=== PATIENT | female | born 1965 | race Caucasian/White ===

== ENCOUNTER → 2023-01-25 | Outpatient (CLI) | payer OTHER, SELFPAY ==
[2023-02-01 13:08] LABS: HPV APTIMA, High Risk Negative (Negative)
== END | disposition home or self-care (01) ==
PROVIDERS: Visit Provider Obstetrics & Gynecology
DX: Z12.4 Encounter for screening for malignant neoplasm of cervix (principal)
CPT/HCPCS: 87624; 88175; G0145

== ENCOUNTER → 2023-02-08 | Outpatient (CLI) | payer OTHER, SELFPAY ==
--- NOTE | 2023-02-08 16:05 | US_ITS ---
EXAM: US PELVIS TRANSABDOMINAL AND TRANSVAGINAL, COMPLETE CLINICAL INDICATION: discomfort TECHNIQUE: Transabdominal and transvaginal pelvic ultrasound was performed with grayscale and color Doppler imaging. Transvaginal imaging was used for better evaluation of the endometrium and adnexa. COMPARISON: No relevant prior studies available. FINDINGS: LIMITATIONS: Large amount of bowel visualized overlying the examination limiting its assessment. UTERUS/CERVIX: Multiple small calcifications in the uterus. Uterus measures 8.4 x 2 4.2 x 3.8 cm with endometrial thickness measuring 4.6 mm. No fibroids. Cervix is closed. Anteverted. RIGHT OVARY: Ovaries are not visualized. This could be due to overlying bowel gas and/or location of the ovaries. Coarse focal calcification with shadowing in the right adnexa measuring 0.6 cm; this may be located within bowel or within distended fallopian tube. LEFT OVARY: See above. FREE FLUID: None. BLADDER: Bladder is unremarkable. US/Transvaginal Non- IMPRESSION: 1. Coarse focal calcification with shadowing in the right adnexa measuring 0.6 cm; this may be located within bowel or within distended fallopian tube. 2. Ovaries are not visualized. 3. No concerning uterine masses. Endometrial complex is unremarkable. Electronically Signed: Jax Walker MD at 4:27 EDT ,
--- NOTE | 2023-02-08 16:05 | US_ITS ---
EXAM: US PELVIS TRANSABDOMINAL AND TRANSVAGINAL, COMPLETE CLINICAL INDICATION: discomfort TECHNIQUE: Transabdominal and transvaginal pelvic ultrasound was performed with grayscale and color Doppler imaging. Transvaginal imaging was used for better evaluation of the endometrium and adnexa. COMPARISON: No relevant prior studies available. FINDINGS: LIMITATIONS: Large amount of bowel visualized overlying the examination limiting its assessment. UTERUS/CERVIX: Multiple small calcifications in the uterus. Uterus measures 8.4 x 2 4.2 x 3.8 cm with endometrial thickness measuring 4.6 mm. No fibroids. Cervix is closed. Anteverted. RIGHT OVARY: Ovaries are not visualized. This could be due to overlying bowel gas and/or location of the ovaries. Coarse focal calcification with shadowing in the right adnexa measuring 0.6 cm; this may be located within bowel or within distended fallopian tube. LEFT OVARY: See above. FREE FLUID: None. BLADDER: Bladder is unremarkable. US/Pelvic (Non ) IMPRESSION: 1. Coarse focal calcification with shadowing in the right adnexa measuring 0.6 cm; this may be located within bowel or within distended fallopian tube. 2. Ovaries are not visualized. 3. No concerning uterine masses. Endometrial complex is unremarkable. Electronically Signed: Jax Walker MD at 4:27 EDT ,
== END | disposition home or self-care (01) ==
LOC: US 16:02
PROVIDERS: PCP Family Medicine; Referring Provider Obstetrics & Gynecology; Visit Provider Obstetrics & Gynecology
DX: N81.3 Complete uterovaginal prolapse (principal)
CPT/HCPCS: 76830; 76856

== ENCOUNTER 2023-03-16 09:50 | Observation (INO) | payer OTHER, SELFPAY ==
--- NOTE | 2023-03-08 12:26 | EKG12_ITS ---
Test Reason : PRE OP Blood Pressure : / mmHG Vent. Rate : 068 BPM Atrial Rate : 068 BPM P-R Int : 154 ms QRS Dur : 076 ms QT Int : 398 ms P-R-T Axes : 053 043 057 degrees QTc Int : 423 ms Normal sinus rhythm Normal ECG Confirmed by TYLER BLANCO, KURT ([id number]), newspaper editor managing SUNG GOODSON ([id number]) on 03/10/2023 9:52:45 AM Referred By: Gita Schuler Confirmed By:ZITA SCOTT MD
[2023-03-08 18:19] LABS: Hematocrit 36.7 % (37-47); Hemoglobin 12.3 g/dL (12.0-15.0); Mean Corp Hgb Conc 33.5 g/dL (32-36); Mean Corpuscular Hgb 32.2 pg (27.0-32.0); Mean Corpuscular Volume 96.1 fL (81-99); Platelet Count 382 K/mm3 (150-450); RBC Distribution Width CV 14.5 % (11.6-14.6); RBC Distribution Width SD 50.5 fl (35.1-43.9); Red Blood Count 3.82 M/mm3 (4.2-5.4); White Blood Count 7.7 K/mm3 (4.4-11.0)
[2023-03-08 18:54] LABS: Anion Gap 3 (5-15); BUN 13 mg/dL (7-18); BUN/Creat Ratio 28.4 RATIO (10-20); Calcium,Total 8.3 mg/dL (8.5-10.1); Chloride 111 mmol/L (98-107); Creatinine, Serum 0.46 mg/dL (0.55-1.02); EST Glomerular Filtration Rate 151 mL/min (>60); Est Glom Filt Rate - Afr Amer 182 mL/min (>60); Glucose 94 mg/dL (74-106); Magnesium 2.4 mg/dL (1.6-2.6); Potassium 4.3 mmol/L (3.5-5.1); Sodium Level 138 mmol/L (136-145)
--- NOTE | 2023-03-15 16:58 | HP.PCM_ITS ---
History and Physical Date of Admission: 03/15/23 Intake Vital Signs ? 03/08/2313:52 03/08/2313:53 Height 5 ft 3 in 5 ft 3 in Weight: 102 lb 6 oz ? BMI 18.1 ? BP 99/59 L ? Intake Visit Reasons:?TVHBS cysto Manager Of Compliance Required: No Is patient in pain?: No Allergies No Known Allergies Allergy (Verified 03/08/23 13:53) Medications red yeast rice 600 mg capsule 600 mg PO DAILY 01/25/23 [History Confirmed 03/08/23] estradiol 0.01% (0.1 mg/gram) vaginal cream 1 appful vaginal MOWEFR PRE-OP 03/03/23 [History Confirmed 03/08/23] PFSH Medical History? Dietary restriction History of IBS Non-smoker Post-menopausal Restless legs Wears glasses Surgical History? Hx of colonoscopy Hx of dilation and curettage Hx of wisdom tooth extraction Family History? Father Cancer of kidney Diabetes Heart disease Social History? Smoking Status:? Never smoker alcohol intake:? never substance use type:? does not use additional social history:? - Luis HPI TVHBS cysto Details: JASMIN SILVA is a 57 year old (vaginal deliveries) who presents for discussion about surgery to remove uterus and pelvic repair. She has seen Dr. Adair already and the plan is for at least a cystocele repair. She states that her uterus is completely prolapsed and she has to push it back up inside for relief. History ? ? ? 7 ? Elective abortions ? Hx Para ? ? ? 5 ? Spontaneous abortions ? ? ? 2 Hx # Term Pregnancies ? Ectopic pregnancies ? Hx # Pregnancies ? Multiple births ? # of living children ? Past Pregnancies Del. Date Name GA/Weeks Outcome Route Bth Weight Gen Labor Lgth Anesthesia Del Locatn Provider FOB Unknown Freddy ? Unknown Merl ? Unknown Dipika ? Unknown Melissa ? Unknown Navi ? ROS Const ROS Unobtainable: All systems reviewed & are unremarkable except as noted in H Resp Resp: Reports system reviewed and no additional complaints, except as documented; Denies cough GI GI: Reports as per HPI Psych Psych: Reports system reviewed and no additional complaints, except as documented Exam Const General: cooperative, healthy appearing, comfortable and no acute distress Resp Effort & Inspection: normal respiratory effort Skin General: no rashes or lesions noted Psych Appearance: grossly normal Speech and Movement: speech and movement normal Coding Level of Care Code Off vis,est,level 4 Diagnoses Complete uterine prolapse? N81.3 Assessment and Plan Assessment and Plan (1) Complete uterine prolapse: ?Status:?Acute ?Plan: After discussing the patient's diagnosis and treatment plan options, patient wishes to proceed with surgical management.? I have discussed with the patient the risks, benefits, and alternatives of the procedure which include but are not limited to risks of anesthesia, bleeding, infection, possible damage to bowel, bladder, or surrounding vasculature which could lead to additional surgery to evaluate any complications.? Patient agrees to procedure and wishes to proceed.? ACOG/uptodate references given for additional information regarding procedure.? pt does not want ovaries removed. plan for total vaginal hyst with and a& P repair with dr. adair
[2023-03-16] VITALS (13 sets, daily range): BP systolic 83–103; BP diastolic 57–68; PULSE 60–77; RESP 15–18; TEMP 36.1–37.1; O2SAT 95–100; BMI 18.4
--- NOTE | 2023-03-16 | HYST_PTH ---
PATIENT: JASMIN SILVA LOC: MS3 U#:[id number] AGE/SX: 57/F ROOM: [facility] RE03/16/[address]: Dr. Gita Schuler MD : [id number] BED: 1 DIS: 03/17/2023 SPEC #: [id number] RECD: 03/16/23 12:17 STATUS: CHRISTINA REYue #: [id number] BLANCA: 03/16/23 00:[address]: Gita Schuler DEPT: SURGICAL PATHOLOGY RECD BY: Lyle Vincent ENTERED: 03/16/23 12:17 SP TYPE: HYSTERECT OTHR DR: DO Dr. Julio Cordero MD Tissues: Uterus, NOS Procedures: Surgery Specimen Level V HEADER OPERATION: ERAS, total vaginal hysterectomy, bilateral salpingectomy PRE-OP DIAGNOSIS: Complete uterine prolapse TISSUE SUBMITTED: Uterus, cervix, bilateral fallopian tubes MICROSCOPIC DIAGNOSIS Uterus, hysterectomy: Cervix ? hyperkeratosis and mucosal denudation with associated granulation. Endometrium ? focal simple cystic hyperplasia without atypia. Myometrium ? focal superficial adenomyosis. Right and left fallopian tube ? benign paratubal cysts. AM:juve 03/17/2023 MICROSCOPIC DESCRIPTION Slides are reviewed. GROSS DESCRIPTION Received in fixative is one container labeled with the patient's name and designated uterus. The specimen consists of a uterus with attached cervix and two detached fallopian tubes. The uterus with cervix measures 11.0 x 6.0 x 5.0 cm and weighs 137.9 gm. The ectocervix is has an irregular cervical os, but no distinct mass lesions are identified. The paracervical tissue is inked. The endocervical canal measures 3.2 cm in length and is grossly unremarkable. The triangular endometrial cavity measures 3.5?x 2.2 cm. The velvety, light kumar endometrium measures up to 0.2 cm in greatest thickness. The myometrium measures 2.2 cm in average thickness and is free of mass lesions. The two fallopian tubes?are similar in appearance with average lengths of 5.0 cm and average diameters of 0.7 cm. Retail Clerk sections are submitted as follows: 1 - anterior cervix, 2 - posterior cervix, 3 & 4 - anterior uterine wall, 5 & 6 - posterior myometrial wall, 7 - one fallopian tube, 8 - the other fallopian tube. / AM:juve 03/16/2023 TC:5 CPT: 91714
[2023-03-16] MEDS: Lactated Ringers 1,000 ML 40 ML IV (06:11)
[2023-03-16] MEDS: Magnesium 1 GM over 15 mins IV (06:11)
[2023-03-16] MEDS: Acetaminophen 500 MG Tablet 1000 MG PO ×3 (06:12→18:19)
[2023-03-16] MEDS: Gabapentin 600 MG Tablet PO (06:13)
[2023-03-16] MEDS: Celecoxib 200 MG Capsule 400 MG PO (06:13)
[2023-03-16] MEDS: dexAMETHasone 4 MG/ML Vial 8 MG IV (06:14)
[2023-03-16 06:46] LABS: Bedside Glucose 98 mg/dL (74-106)
--- NOTE | 2023-03-16 07:30 | PCM.DC ---
Discharge Instructions Diet Discharge Diet: No restrictions Activity Discharge Activity: Return to Normal Activity, May Not Drive (while taking narcotic pain medications.) and May Shower May resume sexual activity in: 6-8 weeks Dressing / Incision Call your doctor if your incision/area has: Continuous Slow Oozing, Sudden Increased Bleeding, Increased Pain/ Swelling, Increased Redness and Foul Smelling Discharge Call your doctor if you observe: Fever of 101 or Higher, Inability to urinate, Inability to have a bowel movement and Using more than 1 pad per hour Follow Up Care Please Follow Up With: Michelle Abdul DO Test Results: Test results from this visit will be discussed in further detail at your follow-up appointment, if applicable. Discharge Plan Admission Primary Reason for Your Visit: vaginal hysterectomy, vaginal repair Attending Provider: Gita Schuler Primary Care Provider: Julio King Consulting Providers: Michelle Abdul Discharge Orders/Prescriptions Prescriptions: New ibuprofen 800 mg tablet 800 mg PO Q8H PRN (Reason: pain) Qty: 30 0RF hydrocodone-acetaminophen 5-325 mg tablet 1 tab PO Q4H PRN (Reason: pain) 7 Days Qty: 20 0RF Continued red yeast rice 600 mg capsule 600 mg PO DAILY Rx Instructions: give with meal/snack estradiol 0.01 % (0.1 mg/gram) cream 1 appful VAGINAL MOWEFR Label Comments: INSERT ONE GRAM VAGINALLY THREE TIMES PER WEEK BEFORE BED Other Ambulatory Orders: ,Urine (Routine) Timeframe: [id number] Facility: [facility] - Location: Laboratory Ordered By: Dr. Michelle Abdul 12 Lead EKG (Routine) Timeframe: [id number] Location: None Selected Ordered By: Dr. Smith Bryant Referrals / Follow Up: Julio King MD [Primary Care Provider] - Disposition Disposition (needs filled in before D/C Order can be placed): Home, Self Care
[2023-03-16] MEDS: Lactated Ringers @ 70 MLS/HR 70 ML IV ×2 (07:42→16:25)
[2023-03-16] MEDS: Cefotetan 2 GM in 0.9% NS 100 ML IV (07:42)
--- NOTE | 2023-03-16 09:27 | OP.PCM_ITS ---
Problems Associated Problem List Diagnoses (1) Atrophy of vagina: (2) Complete uterine prolapse: (3) Urge incontinence: (4) Nocturia: Report of Operation Date of Procedure: 03/16/23 Pre-Operative Diagnosis: complete pelvic organ prolapse Post-Operative Diagnosis: complete pelvic organ prolapse Surgery/Procedure Performed:: total vaginal hysterectomy, bilateral salpingectomy Description of Surgical Findings:: completely prolapsed cervix and uterus, atrophic and somewhat stretched and denuded peritoneal tissue Surgeon: Michelle Abdul distribution operations supervisor: Mana Alcazar Type of Anesthesia: General Specimen's removed: uterus, cervix, bilateral fallopian tubes Estimated Blood Loss (mL): 200cc Description of Procedure: Patient was taken to the operating room and was placed under general anesthesia was prepped and draped in normal sterile fashion in the dorsal lithotomy position.? Preoperative antibiotics and SCDs and Zheng catheter was placed inside the bladder.? Weighted speculum was placed in the vagina and the anterior and posterior lip of the cervix was grasped with 2 Carissa clamps The posterior cul-de-sac was entered sharply to start the procedure. The perintoneum and posterior vaginal mucosa were tagged with 1-0 vicryl suture. Next, the uterosacral ligaments were clamped and suture ligated. The anterior cul-de-sac was also dissected down and entered into sharply and the cardinal ligaments were clamped cut and suture ligated bilaterally with # 0 vicryl.? The uterus serially descended and progressive bites were taken bilaterally up to the level of the utero-ovarian ligament bilaterally which was clamped transected and double ligated with 0 vicryl suture and 0 Vicryl free tie.? Bilateral fallopian tubes and ovaries were well visualized and noted be within normal limits and the bilateral fallopian tubes were transected across the base with a Cary clamp and removed and sutured with 0 Vicryl suture.? Excellent hemostasis was noted.? The bilateral uterosacral ligaments were incorporated into the anterior peritoneum to provide apical support to the vagina.? The vagina was closed with [id number] 0 Vicryl pop offs including the posterior and anterior peritoneum in the reapproximation.? Excellent hemostasis was noted.? The vaginal length however was noted to be 4 cm in length. All instruments removed from the vagina clear urine was noted at the end of the procedure and patient was awoken and taken recovery in stable condition. Dr Schuler was called in to complete her portion of the procedure. Grafts/Implants Used: none Complications none Admit VTE Documentation VTE Present on Admission: No VTE Mechan Device Prophylaxis: SCD's VTE Pharm Prophylaxis ordered?: Yes Multi Select Codes Urinary/Genital Urinary/Genital CPT Codes: 08825 TVH+BS/O <250gr uterus
[2023-03-16] MEDS: Bupivacaine 0.25% 30 ML Vial (09:30)
[2023-03-16] MEDS: Estrogens,Conj. 1 Tube 1 DOSE (09:40)
[2023-03-16] MEDS: Ondansetron 4 MG/2 ML Vial IV (09:48)
--- NOTE | 2023-03-16 09:57 | PCM.OPRPT ---
Report of Operation Date of Procedure: 03/16/23 Pre-Operative Diagnosis: Complete uterine prolapse, cystocele, rectocele Post-Operative Diagnosis: Same Surgery/Procedure Performed:: Right sacrospinous ligament fixation posterior repair, cystoscopy with bilateral ureteral catheterization Surgeon: Gita Schuler Type of Anesthesia: General Description of Procedure: The patient is a 57-year-old female with complete uterine prolapse, who underwent testing preoperatively and now presents for surgical intervention. Informed consent was obtained. The patient was taken to the operating room and placed on the operating room table. Anesthesia monitored the head, neck, airway, IV access and vital signs throughout the case. Once anesthesia was administered, the patient was placed into exaggerated dorsolithotomy and Trendelenburg position and was prepped and draped in usual sterile fashion. Dr. Copeland performed her portion of the procedure and close the vaginal cuff. The case was then turned over to me. She had an indwelling Zheng catheter draining clear yellow urine. The vault length was very short, and on further assessment her pelvic width was very short as well. I was able to palpate the right sacrospinous ligament and bring the apex of the vagina to the ligament without too much tension. The decision was made to proceed with apical support and the anterior repair was aborted as the prolapse was reduced with the addition of apical support. The posterior submucosa was injected with Marcaine for hydrostatic dissection. A midline incision was made in full-thickness fashion through the vaginal mucosa. The mucosa was very thin for her age. Dissection was done on the right side all the way until the ischial spine was palpable and the sacrospinous ligament was identified and freed from surrounding tissues. The Capio device was then used to pass a 2-0 Ethibond suture through the ligament and this was brought out in full-thickness fashion through the apex. The suture was tied into position. The patient was taken out of Trendelenburg, the Zheng catheter was removed and a cystoscopy was performed through the urethra under direct visualization. There was no evidence of injury to the urinary bladder. Bilateral ureteral orifices were identified in the area of the trigone. Each ureteral orifice was cannulated 1 at a time with a 5 Pashto whistle-tip catheter which easily advanced all the way to 20 cm without evidence of injury or obstruction. There was no hemorrhage from either orifice or noted on the whistle-tip catheter when removed. At this time the cystoscope was removed and the Zheng catheter was reinserted and the balloon was inflated. The rectovaginal fascia was brought together in a 2 layer closure with 2-0 Vicryl in interrupted fashion. Once this repair was done all the way through the perineal body, the prolapse was completely reduced with no evidence or ability for further repair. The decision was made to abort the mid urethral sling as the patient has no stress incontinence and her length of the urethra was also very short. At this time the vagina was filled with estrogen cream and packing. She was awakened and taken to the recovery room in good condition. There were no complications during this procedure. Grafts/Implants Used: None Complications None Admit VTE Documentation VTE Present on Admission: Yes VTE Mechan Device Prophylaxis: SCD's VTE Pharm Prophylaxis ordered?: No
[2023-03-16] MEDS: 0.9% Saline Lock 10 ML Syringe IV (13:10)
[2023-03-16] MEDS: Ketorolac 30 MG/ML Syringe IV ×2 (13:11→18:19)
[2023-03-16] MEDS: Docusate Sodium 100 MG Capsule PO ×2 (13:12→21:10)
[2023-03-16] MEDS: Cephalexin 500 MG Capsule PO ×2 (13:12→21:10)
[2023-03-17] MEDS: Ketorolac 30 MG/ML Syringe IV ×2 (00:14→04:53)
[2023-03-17] MEDS: Acetaminophen 500 MG Tablet 1000 MG PO ×2 (00:14→06:19)
[2023-03-17 03:50] VITALS: BP 96/63; PULSE 62; RESP 18; TEMP 37.1; O2SAT 99
[2023-03-17 06:09] LABS: Hematocrit 27.2 % (37-47); Hemoglobin 9.1 g/dL (12.0-15.0); Mean Corp Hgb Conc 33.5 g/dL (32-36); Mean Corpuscular Hgb 31.6 pg (27.0-32.0); Mean Corpuscular Volume 94.4 fL (81-99); Mean Platelet Vol. 9.7 fl (6.2-12.0); Platelet Count 305 K/mm3 (150-450); RBC Distribution Width CV 13.8 % (11.6-14.6); RBC Distribution Width SD 47.5 fl (35.1-43.9); Red Blood Count 2.88 M/mm3 (4.2-5.4); White Blood Count 9.4 K/mm3 (4.4-11.0)
[2023-03-17 07:28] VITALS: O2SAT 97
--- NOTE | 2023-03-17 07:53 | PCM.DC ---
Discharge Instructions Diet Discharge Diet: No restrictions Activity Discharge Activity: May Shower May resume sexual activity in: 8 weeks Additional Activity Instructions:: No tub bathing, swimming, hot tubs. No sexual activity. No exercise or strenuous activity. No lifting over 5 pounds, no vacuuming. Dressing / Incision Call your doctor if your incision/area has: Continuous Slow Oozing, Sudden Increased Bleeding, Increased Pain/ Swelling, Increased Redness and Foul Smelling Discharge Call your doctor if you observe: Fever of 101 or Higher, Inability to urinate, Inability to have a bowel movement and Using more than 1 pad per hour Follow Up Care Please Follow Up With: Michelle Abdul DO When: Dr. Schuler, call office for appt Test Results: Test results from this visit will be discussed in further detail at your follow-up appointment, if applicable. Discharge Plan Admission Admit Date/Time: 03/16/23 09:50 Primary Reason for Your Visit: vaginal hysterectomy, vaginal repair Attending Provider: Giat Schuler Primary Care Provider: Julio King Consulting Providers: Michelle Abdul Discharge Orders/Prescriptions Prescriptions: New ibuprofen 800 mg tablet 800 mg PO Q8H PRN (Reason: pain) Qty: 30 0RF hydrocodone-acetaminophen 5-325 mg tablet 1 tab PO Q4H PRN (Reason: pain) 7 Days Qty: 20 0RF Continued red yeast rice 600 mg capsule 600 mg PO DAILY Rx Instructions: give with meal/snack estradiol 0.01 % (0.1 mg/gram) cream 1 appful VAGINAL MOWEFR Label Comments: INSERT ONE GRAM VAGINALLY THREE TIMES PER WEEK BEFORE BED Other Ambulatory Orders: ,Urine (Routine) Timeframe: [id number] Facility: [facility] - Location: Laboratory Ordered By: Dr. Michelle Abdul 12 Lead EKG (Routine) Timeframe: [id number] Location: None Selected Ordered By: Dr. Smith Bryant Referrals / Follow Up: Julio King MD [Primary Care Provider] - Disposition Disposition (needs filled in before D/C Order can be placed): Home, Self Care
[2023-03-17] MEDS: Cephalexin 500 MG Capsule PO (08:57)
[2023-03-17] MEDS: Ensure Plus High Protein 120 ML LIQUID PO ×2 (08:57→12:04)
[2023-03-17] MEDS: Docusate Sodium 100 MG Capsule PO (08:57)
[2023-03-17 09:19] VITALS: BP 89/47; PULSE 74; RESP 16; TEMP 36.7; O2SAT 98
[2023-03-17 10:28] VITALS: BP 83/49; PULSE 89; RESP 16; TEMP 37; O2SAT 97
[2023-03-17 10:29] VITALS: BP 76/45
[2023-03-17 11:39] LABS: Hematocrit 26.7 % (37-47); Hemoglobin 8.9 g/dL (12.0-15.0); Mean Corp Hgb Conc 33.3 g/dL (32-36); Mean Corpuscular Hgb 31.7 pg (27.0-32.0); Mean Platelet Vol. 9.1 fl (6.2-12.0); Platelet Count 306 K/mm3 (150-450); RBC Distribution Width CV 14.1 % (11.6-14.6); RBC Distribution Width SD 49.6 fl (35.1-43.9); Red Blood Count 2.81 M/mm3 (4.2-5.4); White Blood Count 8.6 K/mm3 (4.4-11.0)
[2023-03-17 12:08] VITALS: BP 85/58; PULSE 82; RESP 16; TEMP 36.9; O2SAT 16
--- NOTE | 2023-03-17 12:55 | PCM.PN.OB ---
Subjective Subjective Patient is laying in bed comfortably without complaints. She states that she slept on an off during the night. Wants to be discharged to home this afternoon. Objective Data Objective Data Vital Signs: Vital Signs Temp Pulse Resp BP Pulse Ox O2 Del Method O2 Flow Rate 98.5 F 82 16 85/58 L 16 Room Air 4 03/17/23 12:08 03/17/23 12:08 03/17/23 12:08 03/17/23 12:08 03/17/23 12:08 03/17/23 12:08 03/16/23 11:53 Oxygen Flow Rate (L/min) 4 Oxygen Delivery Method Room Air Weight: 101 lb Body Mass Index (BMI) 18.4 Intake & Output: Intake and Output for Last 24 Hours 03/15/23 03/16/23 03/17/23 23:59 23:59 23:59 Intake Total 2682.17 / 2682.17 1349.5 / 1349.5 Output Total 1950 / 1950 1850 / 1850 Balance 732.17 / 732.17 -500.5 / -500.5 Lab / Micro Data Result Diagrams: 03/17/23 11:31 03/08/23 16:38 Labs: Laboratory Results - last 24 hr 03/17/23 05:32: WBC 9.4, RBC 2.88 L, Hgb 9.1 L, Hct 27.2 L, MCV 94.4, MCH 31.6, MCHC 33.5, RDW Std Deviation 47.5 H, RDW Coeff of Lorraine 13.8, Plt Count 305, MPV 9.7 03/17/23 11:31: WBC 8.6, RBC 2.81 L, Hgb 8.9 L, Hct 26.7 L, MCV 95.0, MCH 31.7, MCHC 33.3, RDW Std Deviation 49.6 H, RDW Coeff of Lorraine 14.1, Plt Count 306, MPV 9.1 ROS Constitutional Constitutional: Reports systems reviewed and no addt'l complaints, except as documented Cardiovascular Cardiovascular: Denies chest pain, dizziness, dyspnea or irregular heart rhythm Respiratory/Chest Respiratory/Chest: Denies cough, pain on inspiration or shortness of breath at rest Gastrointestinal Gastrointestinal: Denies abdominal pain, nausea or vomiting Genitourinary Genitourinary: Denies burning urination Musculoskeletal Musculoskeletal: Denies muscle cramps, muscle spasms or muscle weakness Neurologic Neurologic: Denies confusion, dizziness, headache(s) or lack of coordination Psychiatric Psychiatric: Denies anxiety, behavioral changes or depression Physical Exam HEENT normocephalic Resp normal respiratory effort and normal air movement GI soft to palpation, non-tender and non-distended no CVA tenderness Extremity normal to inspection General Extremity: edema bilateral (trace ) Assessment & Plan (1) Status post vaginal hysterectomy: PLAN: Plan patient is s/p TVH, SSLF, cystp POD 1 1. routine ERAS protocol postop care- increase ambulation, encourage oral intake and oral control of pain. scds for dvt prophylaxis. Has some lower blood pressures but is asymptomatic. HG stable patient stable for discharge to home.
--- NOTE | 2023-03-17 13:38 | PHA.DC.MC ---
Pharmacy Service has performed discharge medication reconciliation and counseling for this patient. The patient was counseled on the following discharge medications and changes in medications for homegoing were reviewed. 1. PERCOCET 2. IBUPROFEN The Reason for Use, instructions for use, and potential side effects were reviewed for all new medications. The patient's questions regarding all of their medications were answered. The patient was able to verbally demonstrate an understanding of their discharge medications. Home Medications red yeast rice 600 mg capsule 600 mg PO DAILY 01/25/23 estradiol 0.01% (0.1 mg/gram) vaginal cream 1 appful vaginal MOWEFR PRE-OP 03/03/23 hydrocodone-acetaminophen 5-325mg 5mg-325mg 1 tab PO Q4H PRN pain 7 days #20 tabs 03/16/23 ibuprofen 800 mg tablet 800 mg PO Q8H PRN pain #30 tabs 03/16/23 The patient's discharge medication list was reviewed for discrepancies and discrepancies were resolved. Patient provided counselling by Walter TejedaD candidate
--- NOTE | 2023-03-17 13:59 | NURSING ---
guajardo and leg bag teaching complete. discharge inst given.
== END 2023-03-17 14:22 | disposition home or self-care (01) ==
LOC: SDC 10:21 → MS3 10:21
PROVIDERS: Anesthesiology; Admitting Provider Obstetrics & Gynecology; PCP Family Medicine; Referring Provider Urology; Visit Provider Urology
PROC: (CPT 58260; principal; 2023-03-16 07:10)
PROC: (CPT 57260; 2023-03-16 07:10)
DX: N81.3 Complete uterovaginal prolapse (principal); N39.41 Urge incontinence; N85.01 Benign endometrial hyperplasia
CPT/HCPCS: 57282; 58262; 57250; 00944; 36415; 51702; 80048; 82962; 83735; 85027; 86850; 86900; 86901; 88307; 93005; 94668; 96374; 96376; 99221; J7120; A4216; C1758; G0378; J2405; J3475